=== PATIENT | male | born 1975 | race Caucasian/White ===

== ENCOUNTER 2024-02-09 18:46 | Observation (INO) | payer OTHER, SELFPAY ==
[2024-02-09 18:50] VITALS: BP 146/84; PULSE 70; RESP 16; TEMP 37.1; O2SAT 98; BMI 32.3
[2024-02-09] MEDS: PANTOPRAZOLE 40 MG VIAL 80 MG IV (19:26)
--- NOTE | 2024-02-09 19:29 | ED_ITS ---
HPI - GI Bleed General Chief complaint: GI Bleed Stated complaint: states bleeding ulcer/black stool Time Seen by Provider: 02/09/24 19:17 Source: patient Mode of arrival: Ambulatory History of Present Illness HPI Narrative: 48-year-old male admits to recent drinking of 4 margaritas at a alliance party, does not usually drink alcohol regularly or that much, Monday started having four loose black appearing stools, some crampy upper abdominal pain, Monday had black colored diarrhea twice at work in [place], still having intermittent black stools there, no bright red blood per rectum, more solid black stool today, taking daily Advil for chronic left knee pain since surgery December 2022. Here for further evaluation of ongoing black stools. He denies syncope or presyncope symptoms, no generalized weakness. He denies abdominal discomfort. No nausea or vomiting. No history of known varices or liver problems known. He has not take blood thinner medications. Related Data Home Medications Medication Instructions Recorded Confirmed No Known Home Medications 02/09/24 02/09/24 Allergies Allergy/AdvReac Type Severity Reaction Status Date / Time No Known Drug Allergies Allergy Verified 02/09/24 19:27 Patient History Social History household members: spouse Smoking Status: Never smoker alcohol intake: current Exam Narrative Exam Narrative: GENERAL: Well-developed patient, in mild distress. HEAD: Atraumatic. Normocephalic. EYES: Pupils equal round and reactive. Extraocular motions intact. No scleral icterus. No injection or drainage. ENT: Nose without bleeding, purulent drainage. Throat without erythema, tonsillar hypertrophy or exudate. Airway patent. NECK: Trachea midline. Non tender CARDIOVASCULAR: Regular rate and rhythm without murmurs, gallops, or rubs. RESPIRATORY: Clear to auscultation. Breath sounds equal bilaterally. No wheezes, rales, or rhonchi. GASTROINTESTINAL: Abdomen soft, non-tender, nondistended. Defecated stool guaiac positive EXTREMITIES: No edema or joint tenderness. BACK: Nontender without deformity or crepitance. No flank tenderness. NEURO: AOx3. SKIN: No rash or erythema of visible areas Initial Vital Signs Initial Vital Signs: Vital Signs Temperature 98.7 F 02/09/24 18:50 Pulse Rate 70 02/09/24 18:50 Respiratory Rate 16 02/09/24 18:50 Blood Pressure 146/84 H 02/09/24 18:50 Pulse Oximetry 98 02/09/24 18:50 Oxygen Delivery Method Room Air 02/09/24 18:50 Course Orders Ordered: Albuterol (Albuterol 2.5 Mg/3 Ml Neb (Adult)) 2.5 mg INH [id number] PRN PRN Reason: Dyspnea Hydralazine HCl (Hydralazine 20 Mg/Ml Vial) 10 mg IV Q6HR PRN PRN Reason: SBP>= 160 or DBP >=110 Hydromorphone HCl (Hydromorphone 0.5 Mg Inj) 0.5 mg IV Q2H PRN PRN Reason: Pain, Severe (7-10) Sodium Chloride (Normal Saline 0.9%) 1,000 mls @ 100 mls/hr IV CONT BEBA Last Admin: 02/09/24 21:25 Dose: 100 mls/hr Documented By: SUNNI Lorazepam (Lorazepam 2 Mg/Ml Inj) 0.25 mg IV Q4HR PRN PRN Reason: Anxiety Naloxone HCl (Naloxone 0.4 Mg/Ml Vial) 0.2 mg IV Q2MIN PRN PRN Reason: Opiate Reversal Ondansetron HCl (Ondansetron 4 Mg/2 Ml Inj) 4 mg IV Q8HR PRN PRN Reason: Nausea And Vomiting Pantoprazole Sodium (Pantoprazole 40 Mg Vial) 40 mg IV Q12H [facility] Discontinued Medications Pantoprazole Sodium (Pantoprazole 40 Mg Vial) 80 mg IV NOW ONE Stop: 02/09/24 19:19 Last Admin: 02/09/24 19:26 Dose: 80 mg Documented By: TEA Pantoprazole Sodium (Pantoprazole 40 Mg Vial) 40 mg IV BID [facility] Vital Signs Vital signs: Vital Signs - 8 hr 02/09/24 18:50 Temperature 98.7 F Pulse Rate 70 Respiratory Rate 16 Blood Pressure 146/84 H Pulse Oximetry 98 Oxygen Delivery Method Room Air MDM - GI Bleed Medical Records Attestation: I reviewed the patient's medical records. Lab Data Attestation: I reviewed the patient's lab results. 02/09/24 19:10 02/09/24 19:10 Labs: Lab Results 02/09/24 02/09/24 02/09/24 Range/Units 19:10 19:33 19:38 WBC 5.7 (4.5-11.0) X10^3/uL RBC 4.47 L (4.5-5.9) X10^6/uL Hgb 14.1 (13.5-17.5) g/dL Hct 40.0 L (41-53) % MCV 89.6 (80-100) fL MCH 31.5 (26-34) PG MCHC 35.2 (30-36) % RDW 14.2 (11.6-14.8) % Plt Count 334 (150-400) X10^3/uL Neut % (Auto) 54.1 (50-75) % Lymph % (Auto) 35.8 (25-40) % [place] % (Auto) 6.5 (3-14) % Eos % (Auto) 2.2 (2-4) % Baso % (Auto) 1.4 (0-2) % Neut # (Auto) 3100 (7843-5682) /uL Lymph # (Auto) 2000 (9381-6067) /uL [place] # (Auto) 400 (0-900) /uL Eos # (Auto) 100 (0-450) /uL Baso # (Auto) 100 (0-100) /uL PT 11.1 (9.4-12.5) SECONDS INR 1.0 (0.9-1.3) Sodium 140 (137-145) mmol/L Potassium 3.9 (3.4-5.1) mmol/L Chloride 107 (98-107) mmol/L Carbon Dioxide 26 (22-32) mmol/L BUN 17 (9-20) mg/dL Creatinine 0.84 (0.66-1.25) mg/dL Estimated GFR > 60 (>60) mL/min BUN/Creatinine Ratio 20.2 (6-22) Glucose 90 (70-100) mg/dL Calcium 8.8 (8.4-10.2) mg/dL Total Bilirubin 0.6 (0.2-1.3) mg/dL AST 35 (17-59) IU/L ALT 41 (<50) IU/L Alkaline Phosphatase 69 (38-126) U/L Ammonia < 9 L (9-30) umol/L Total Protein 7.2 (6.3-8.2) g/dL Albumin 4.5 (3.5-5.0) g/dL Globulin 2.7 (1.7-4.1) g/dL Albumin/Globulin Ratio 1.7 (1.0-2.8) Lipase 125 (23-300) U/L Blood Type O Positive Antibody Screen Negative Point of Care Testing Stool Occult Blood Positive ECG Data Attestation: I personally reviewed and interpreted this ECG as follows: Interpretation: Normal sinus rhythm with a rate of 68, no obvious ST segment elevation or depression changes. There are T-wave inversions in lead 3 and 5, not elevated lead 2. None for comparison available. MDM Narrative Medical decision making narrative: 48-year-old male with reported melanotic stools for the last 4 days somewhat tapering but persisting, recent alcohol use but not chronic, no blood thinner medications, has frequent regular exposure to ibuprofen for chronic knee pain. No previous upper endoscopies. Afebrile, sirs screen negative. Initial hemoglobin 14.1, platelets adequate, INR normal. Will consult with general surgery about upper endoscopy timing 1954, case discussed with general surgery Dr. Manzo, he can consult for upper endoscopy, requests admission to hospitalist 2009, call back from hospitalist Dr. Barrett, accepts patient for admission to observation Critical Care Time Critical Care Time Critical Care Time: Yes Total Critical Care Time: 35 Attestation: The high probability of a clinically significant, sudden or life threatening deterioration of the [GI, cardiovasular] system(s) required my full and direct attention, intervention and personal management. The aggregate critical care time was [35] minutes. This time is in addition to time spent performing reported procedures but includes the following: [x] Data Review and interpretation [x] Patient assessment and monitoring of vital signs [x] Documentation [x] Medication orders and management Discharge Plan Departure Patient Disposition: Admitted as Observation Clinical Impression: Upper gastrointestinal hemorrhage Admit Date/Time: 02/09/24 20:15 Admit Provider: Gavin Barrett
[2024-02-09 19:32] LABS: Add Manual Diff / Slide Review NO; Basophils Absolute Auto 100 /uL (0-100); Basophils Percent Auto 1.4 % (0-2); Eosinophils Absolute Auto 100 /uL (0-450); Eosinophils Percent Auto 2.2 % (2-4); Hemoglobin 14.1 g/dL (13.5-17.5); Lymphocytes Absolute Auto 2000 /uL (1100-4500); Lymphocytes Percent Auto 35.8 % (25-40); Mean Corpuscular HGB Conc 35.2 % (30-36); Mean Corpuscular Hemoglobin 31.5 PG (26-34); Mean Corpuscular Volume 89.6 fL (80-100); Monocytes Absolute Auto 400 /uL (0-900); Monocytes Percent Auto 6.5 % (3-14); Neutrophils Absolute Auto 3100 /uL (1500-7000); Neutrophils Percent Auto 54.1 % (50-75); Platelet Count 334 X10^3/uL (150-400); Red Blood Cell Count 4.47 X10^6/uL (4.5-5.9); Red Cell Distribution Width 14.2 % (11.6-14.8); White Blood Cell Count 5.7 X10^3/uL (4.5-11.0)
[2024-02-09 19:33] LABS: Alanine Aminotransferase 41 IU/L (<50); Albumin 4.5 g/dL (3.5-5.0); Albumin Globulin Ratio 1.7 (1.0-2.8); Alkaline Phosphatase 69 U/L (38-126); Aspartate Aminotransferase 35 IU/L (17-59); BUN Creatinine Ratio 20.2 (6-22); Bilirubin Total 0.6 mg/dL (0.2-1.3); Blood Urea Nitrogen 17 mg/dL (9-20); Calcium 8.8 mg/dL (8.4-10.2); Carbon Dioxide 26 mmol/L (22-32); Chloride 107 mmol/L (98-107); Estimated Glomerular Filt Rate > 60 mL/min (>60); Globulin 2.7 g/dL (1.7-4.1); Glucose 90 mg/dL (70-100); HEMOLYSIS 24 (0-50); Lipase 125 U/L (23-300); Potassium 3.9 mmol/L (3.4-5.1); Sodium 140 mmol/L (137-145); Total Protein 7.2 g/dL (6.3-8.2)
[2024-02-09 19:49] LABS: Prothrombin Time 11.1 SECONDS (9.4-12.5)
[2024-02-09 20:03] LABS: Ammonia (NH3) < 9 umol/L (9-30)
[2024-02-09] MEDS: SODIUM CHLORIDE 0.9% 1,000 ML 100 ML IV (21:25)
--- NOTE | 2024-02-09 21:46 | PC.NURSE ---
Report given to Estefania GLASGOW @#[id number]
[2024-02-09 22:22] VITALS: BMI 33.2
[2024-02-09 22:35] VITALS: BP 141/81; PULSE 56; RESP 20; TEMP 35.8; O2SAT 98
[2024-02-09 22:37] VITALS: BMI 33.2
--- NOTE | 2024-02-09 23:59 | PM.HP.1 ---
History of Present Illness History of Present Illness Chief complaint: states bleeding ulcer/black stool Narrative: 48 years old male with history of hyperlipidemia, GERD presented to the ER with multiple loose black stools and some abdominal cramps since Monday. The patient traveled to [place] on Monday and started developing intermittent diarrhea. She also reports some cold, sweating and lightheadedness. Denies any hematemesis, nausea or vomiting, syncope, chest pain, shortness of breath or palpitations. Denies heavy use of alcohol. He was taking Advil on a regular basis since he had left knee surgery in 2022. Denies excessive use of alcohol. The patient had colonoscopy last year with removal of small polyps and is scheduled to have next colonoscopy in 5 years. Laboratory was unremarkable. General surgery was consulted for upper endoscopy. He was given Protonix 80 mg IV in the ER. [facility] Social History household members: spouse Smoking Status: Never smoker alcohol intake: current Meds Home Medications and Allergies Home Medications Medication Instructions Recorded Confirmed Type No Known Home Medications 02/09/24 02/09/24 History Allergies Allergy/AdvReac Type Severity Reaction Status Date / Time No Known Drug Allergies Allergy Verified 02/09/24 19:27 Review of Systems Review of Systems ROS: Yes All systems reviewed with the patient and are negative except as otherwise documented Constitutional Constitutional: Reports as per HPI and Reports system reviewed and no additional complaints, except as documented Eyes Eyes: Reports as per HPI and Reports system reviewed and no additional complaints, except as documented ENT Ears, Nose, Mouth, and Throat: Yes as per HPI and Yes system reviewed and no additional complaints, except as documented Cardiovascular Cardiovascular: Reports system reviewed and no additional complaints, except as documented Respiratory Respiratory: Reports system reviewed and no additional complaints, except as documented Gastrointestinal Gastrointestinal: Reports system reviewed and no additional complaints, except as documented Genitourinary Genitourinary: Reports system reviewed and no additional complaints, except as documented Musculoskeletal Musculoskeletal: Reports system reviewed and no additional complaints, except as documented, Reports abnormal gait and Reports numbness Neurologic Neurologic: Reports system reviewed and no additional complaints, except as documented, Reports abnormal gait, Reports confusion and Reports numbness Psychiatric Psychiatric: Reports system reviewed and no additional complaints, except as documented and Reports confusion Exam Vital Signs (past 8 hours): - 02/09/24 18:50 02/09/24 22:35 Temperature 98.7 F 96.4 F L Pulse Rate 70 56 L Respiratory Rate 16 20 Blood Pressure 146/84 H 141/81 H Pulse Oximetry 98 98 Oxygen Delivery Method Room Air Oxygen Flow Rate 0 Oxygen Delivery Method Room Air Oxygen Flow Rate 0 Const General: cooperative, comfortable and well developed Orientation: alert and oriented x3 [facility] Head: normal to inspection, normocephalic and atraumatic Face and sinus: normal facial exam Mouth: oral mucosae normal and moist mucous membranes Throat: posterior oropharynx normal Eyes General: appearance normal, both eyes and all related structures Pupils: PERRL EOM: EOM intact bilaterally Neck Neck: normal visual inspection and full ROM Chest Chest: normal inspection of the chest Resp Effort & Inspection: normal respiratory effort and able to speak in complete sentences Auscultation: clear to auscultation bilaterally Cardio Palpation: normal PMI Rate: regular rate Rhythm: regular rhythm Heart Sounds: S1 normal and S2 normal GI Inspection: normal to inspection Palpation: soft and no hepatosplenomegaly Auscultation: normal bowel sounds Skin General: no rashes or lesions noted Lesions: no lesions Rashes: no rashes Trauma: no lacerations or abrasions Neuro General: patient alert, patient awake, patient oriented x3 and no focal motor deficits Cranial Nerves: CN's II-XI intact bilaterally Cognition: normal cognition Speech: speech normal Gait: normal gait Motor: muscle tone normal throughout Sensory Exam: no sensory deficits noted Extrem General: full ROM and no calf tenderness Psych Appearance: grossly normal Mental Status: mental status grossly normal Speech and Movement: speech and movement normal Objective Labs 02/09/24 19:10 02/09/24 19:10 Labs: Laboratory Results - last 24 hr 02/09/24 02/09/24 02/09/24 19:10 19:33 19:38 WBC 5.7 RBC 4.47 L Hgb 14.1 Hct 40.0 L MCV 89.6 MCH 31.5 MCHC 35.2 RDW 14.2 Plt Count 334 Neut % (Auto) 54.1 Lymph % (Auto) 35.8 [place] % (Auto) 6.5 Eos % (Auto) 2.2 Baso % (Auto) 1.4 Neut # (Auto) 3100 Lymph # (Auto) 2000 [place] # (Auto) 400 Eos # (Auto) 100 Baso # (Auto) 100 PT 11.1 INR 1.0 Sodium 140 Potassium 3.9 Chloride 107 Carbon Dioxide 26 BUN 17 Creatinine 0.84 Estimated GFR > 60 BUN/Creatinine Ratio 20.2 Glucose 90 Calcium 8.8 Total Bilirubin 0.6 AST 35 ALT 41 Alkaline Phosphatase 69 Ammonia < 9 L Total Protein 7.2 Albumin 4.5 Globulin 2.7 Albumin/Globulin Ratio 1.7 Lipase 125 Blood Type O Positive Antibody Screen Negative Assessment & Plan Assessment & Plan narrative: Acute GI bleeding. Most likely upper GI bleed due to excessive use of NSAIDs. Hemodynamically stable. H&H stable. -Monitor H and H every 4-6 hours; will transfuse depending on dropping hemoglobin and hematocrit and hemodynamic status. -start Protonix 40 mg IV twice a day. -Keep patient NPO -Monitor hemodynamics -IVF -Gastroenterology/surgery consulted for endoscopic evaluation of upper GI tract, -Patient to get off any antiplatelet agent like aspirin, Plavix or NSAIDs. Time Spent With Patient Time with patient: 50 to 69 minutes with 50% spent counseling/coordinating care Quality VTE Deep Vein Thrombosis/Pulmonary Embolism Present on Admission: No MIPS - Admit I confirm the patient?s Advance Care Plan is present, Code status is documented, Surrogate decision maker is in patient?s record [If Yes, STOP here]: Yes MIPS - Meds 'Current medications' to include all prescriptions, [id number] products, herbals, cannabis/cannabidiol products, and vitamin/mineral/dietary (nutritional) supplements. I have utilized all available resources to obtain, update, or review the patient?s current medications. [If Yes, STOP here]: Yes
[2024-02-10 03:05] VITALS: BP 123/78; PULSE 64; RESP 18; TEMP 36.7; O2SAT 96
[2024-02-10 08:00] VITALS: BP 124/82; PULSE 67; RESP 18; TEMP 36.1; O2SAT 97
[2024-02-10] MEDS: PANTOPRAZOLE 40 MG VIAL IV (08:22)
[2024-02-10] MEDS: SODIUM CHLORIDE 0.9% 1,000 ML 100 ML IV (08:22)
[2024-02-10 08:30] LABS: Alanine Aminotransferase 34 IU/L (<50); Albumin 3.9 g/dL (3.5-5.0); Albumin Globulin Ratio 1.6 (1.0-2.8); Alkaline Phosphatase 62 U/L (38-126); Aspartate Aminotransferase 28 IU/L (17-59); BUN Creatinine Ratio 15.7 (6-22); Bilirubin Total 0.7 mg/dL (0.2-1.3); Blood Urea Nitrogen 13 mg/dL (9-20); Calcium 8.4 mg/dL (8.4-10.2); Carbon Dioxide 26 mmol/L (22-32); Chloride 110 mmol/L (98-107); Estimated Glomerular Filt Rate > 60 mL/min (>60); Globulin 2.5 g/dL (1.7-4.1); Glucose 89 mg/dL (70-100); HEMOLYSIS < 15 (0-50); Magnesium 2.3 mg/dL (1.6-2.3); Potassium 3.8 mmol/L (3.4-5.1); Sodium 141 mmol/L (137-145); Total Protein 6.4 g/dL (6.3-8.2)
[2024-02-10 08:57] LABS: Add Manual Diff / Slide Review NO; Basophils Absolute Auto 300 /uL (0-100); Basophils Percent Auto 5.2 % (0-2); Eosinophils Absolute Auto 200 /uL (0-450); Eosinophils Percent Auto 2.7 % (2-4); Hematocrit 40.4 % (41-53); Hemoglobin 14.2 g/dL (13.5-17.5); Lymphocytes Absolute Auto 1300 /uL (1100-4500); Lymphocytes Percent Auto 22.3 % (25-40); Mean Corpuscular HGB Conc 35.3 % (30-36); Mean Corpuscular Hemoglobin 31.7 PG (26-34); Monocytes Absolute Auto 400 /uL (0-900); Neutrophils Absolute Auto 3500 /uL (1500-7000); Neutrophils Percent Auto 62.8 % (50-75); Platelet Count 324 X10^3/uL (150-400); Red Blood Cell Count 4.49 X10^6/uL (4.5-5.9); Red Cell Distribution Width 13.8 % (11.6-14.8); White Blood Cell Count 5.6 X10^3/uL (4.5-11.0)
--- NOTE | 2024-02-10 11:23 | P.DS_ITS ---
History of Present Illness History of Present Illness Date Patient Seen: 02/10/24 Time Patient Seen: 10:50 Chief complaint: states bleeding ulcer/black stool Narrative: Per admitting provider, 48 years old male with history of hyperlipidemia, GERD presented to the ER with multiple loose black stools and some abdominal cramps since Monday. The patient traveled to [place] on Monday and started developing intermittent diarrhea. She also reports some cold, sweating and lightheadedness. Denies any hematemesis, nausea or vomiting, syncope, chest pain, shortness of breath or palpitations. Denies heavy use of alcohol. He was taking Advil on a regular basis since he had left knee surgery in 2022. Denies excessive use of alcohol. The patient had colonoscopy last year with removal of small polyps and is scheduled to have next colonoscopy in 5 years. Laboratory was unremarkable. General surgery was consulted for upper endoscopy. He was given Protonix 80 mg IV in the ER. Discharge Providers Provider Date of admission: 02/09/24 20:15 Discharge Date: 02/10/24 Primary care physician: Doctor Myke MD Discharge provider: Beck Seay DO Summary Hospital Course Discharge Diagnosis: Acute upper GI bleeding. Hospital Course: This is a 48 year old male who presented with melena. Hg was 14 in the emergency room. He was hemodynamically stable. He was admitted for GI bleeding. H/h remained stable on repeat. Outpatient endoscopy was recommended by general surgery. Given recent NSAID use for knee pain this is the presumed source of his bleeding. H pylori testing was ordered after discharge for our outpatient lab. He was discharged on pantoprazole 40 mg BID and order was entered for general surgery referral for continued outpatient evaluation after discharge. Time Spent with Patient Time spent: Less than 30 minutes Exam Vital Signs (past 8 hours): - 02/10/24 08:00 Temperature 97 F L Pulse Rate 67 Respiratory Rate 18 Blood Pressure 124/82 Pulse Oximetry 97 Oxygen Flow Rate 0 Oxygen Delivery Method Room Air Oxygen Flow Rate 0 Narrative Exam Narrative: Gen: No acute distress Ext: no edema Objective Labs 02/10/24 08:40 02/10/24 08:06 Labs: Laboratory Results - last 24 hr 02/09/24 02/09/24 02/09/24 19:10 19:33 19:38 WBC 5.7 RBC 4.47 L Hgb 14.1 Hct 40.0 L MCV 89.6 MCH 31.5 MCHC 35.2 RDW 14.2 Plt Count 334 Neut % (Auto) 54.1 Lymph % (Auto) 35.8 [place] % (Auto) 6.5 Eos % (Auto) 2.2 Baso % (Auto) 1.4 Neut # (Auto) 3100 Lymph # (Auto) 2000 [place] # (Auto) 400 Eos # (Auto) 100 Baso # (Auto) 100 PT 11.1 INR 1.0 Sodium 140 Potassium 3.9 Chloride 107 Carbon Dioxide 26 BUN 17 Creatinine 0.84 Estimated GFR > 60 BUN/Creatinine Ratio 20.2 Glucose 90 Calcium 8.8 Magnesium Total Bilirubin 0.6 AST 35 ALT 41 Alkaline Phosphatase 69 Ammonia < 9 L Total Protein 7.2 Albumin 4.5 Globulin 2.7 Albumin/Globulin Ratio 1.7 Lipase 125 Blood Type O Positive Antibody Screen Negative 02/10/24 02/10/24 08:06 08:40 WBC 5.6 RBC 4.49 L Hgb 14.2 Hct 40.4 L MCV 90.0 MCH 31.7 MCHC 35.3 RDW 13.8 Plt Count 324 Neut % (Auto) 62.8 Lymph % (Auto) 22.3 L [place] % (Auto) 7.0 Eos % (Auto) 2.7 Baso % (Auto) 5.2 H Neut # (Auto) 3500 Lymph # (Auto) 1300 [place] # (Auto) 400 Eos # (Auto) 200 Baso # (Auto) 300 H PT INR Sodium 141 Potassium 3.8 Chloride 110 H Carbon Dioxide 26 BUN 13 Creatinine 0.83 Estimated GFR > 60 BUN/Creatinine Ratio 15.7 Glucose 89 Calcium 8.4 Magnesium 2.3 Total Bilirubin 0.7 AST 28 ALT 34 Alkaline Phosphatase 62 Ammonia Total Protein 6.4 Albumin 3.9 Globulin 2.5 Albumin/Globulin Ratio 1.6 Lipase Blood Type Antibody Screen [facility] Social History household members: spouse Smoking Status: Never smoker alcohol intake: current Discharge Plan Discharge Plan Patient Disposition: Home Provider Discharge Comment: Admitted for GI bleed, stable hg on repeat labs. Continue pantoprazole twice a day for 1 month, then reduce to once a day after. This should give you time to follow up with the general surgeons for endoscopy. Recommend changing from advil to tylenol for pain for a couple of months until after endoscopy. Discharge orders & Medications Prescriptions: New pantoprazole 40 mg tablet,delayed release (DR/EC) 40 mg PO BID 30 Days Qty: 60 0RF Follow up/Referrals: Les Manzo MD [Physician] - 1 Week Doctor Stringer MD [Primary Care Provider] - Other Ambulatory Orders: Referral General Surgery (Schedule) Timeframe: 1 Week Facility: [facility] - Location: [facility] Ordered By: Beck Seay H. Pylori Antigen Stool (Routine) Timeframe: 2 Days Facility: [facility] - Location: Laboratory Ordered By: Beck Seay Diet/Activity/Treatments Diet: Diet as Tolerated and Regular Activity: As tolerated no restrictions Visit Report/Discharge Packet Stand Alone Forms: Patient Portal/API, Stroke Signs & Symptoms Discharge Data Primary Care Provider: Doctor Myke Attending Provider: Gavin Barrett Admit Date/Time: 02/09/24 20:15 Quality VTE Deep Vein Thrombosis/Pulmonary Embolism Present on Admission: No
--- NOTE | 2024-02-10 12:27 | CM.DANOTE ---
Initial DCP Assessment Visit Note Reviewed EMR and team rounds for pt's medical status and anticipated d/c needs. Met with pt at bedside to introduce self and role, pt was found to be alert/oriented, expressing readiness to d/c back home today. Pt lives independently with his spouse [facility]. This SENIOR CREDIT OFFICER provided him with a priority boarding ferry pass for his return home. No DCP needs were identified for assistance during his hospital stay. Payor: Home PEREA PCP-not identified Pt is a 48 year-old M who presented to the ED last evening with c/o several days of black stools. Dr. Manzo was consulted, and the plan was made to place pt in OBS, made NPO, with endoscopy planned for today. This morning Surgery decided not to pursue the endoscopy, and pt was cleared for d/c with the plan for him to obtain an OP Lead Mobile Developer for further evaluation/tx. Discharge Planning/Care Management CM Discharge Assessment Start: 02/10/24 11:23 Freq: Status: Active Protocol: Document 02/10/24 11:23 DPL (Rec: 02/10/24 11:24 DPL [id number]) Discharge Planning Assessment Assigned Purchase Request Editor JAI Michelle Advance Directives? No History Provided By Patient,Medical Record Has Patient been admitted in last 30 No days? Prior Living Arrangements House Household Members spouse Type of transporation used prior to Drives own vehicle admit Independent with ADL's Yes Is patient alert and oriented? Yes Comment N/A Caregiver for Another No Comment No identified home d/c needs at this time. Barriers to Discharge No Discharge Plan Home Transportation Arrangement Spouse Referrals Initiated None needed Whiteboard Updated in Patient Room with Yes name and ext. # of Purchase Request Editor Review Status In Process Please Provide Date Initial DC 02/10/24 Assessment Was Performed
--- NOTE | 2024-02-10 13:07 | PC.NURSE ---
Pt discharged home at 1230, escorted off floor accompanied by hospital staff. IV removed, discharge teaching provided including new medications, follow up appointment and worsening symptoms. Questions answered and concerns addressed. Patient left the floor with all belongings.
== END 2024-02-10 12:30 | disposition home or self-care (01) ==
LOC: ED 19:17 → AC 20:16
PROVIDERS: Internal Medicine; Admitting Provider Internal Medicine; Emergency Provider Emergency Medicine; Referring Provider Emergency Medicine; Visit Provider Internal Medicine
DX: K92.1 Melena (principal); K21.9 Gastro-esophageal reflux disease without esophagitis
CPT/HCPCS: 36415; 80053; 82140; 82272; 83690; 83735; 85025; 85610; 86850; 86900; 86901; 93005; 96361; 96374; 96376; 99284; G0378; C9113

== ENCOUNTER → 2025-02-23 15:34 | Outpatient (CLI) | payer OTHER, SELFPAY ==
--- NOTE | 2025-02-23 15:37 | DI.MRI.S_ITS ---
PROCEDURE: MR BRAIN (IAC) WWO CON INDICATIONS: tinnitus, rt ear TECHNIQUE: Noncontrast sagittal T1 spin echo, axial FLAIR, axial gradient echo, axial diffusion and ADC through the brain. Axial thin-slice 3D CISS, coronal TruFISP, axial T1 spin echo with fat saturation through the internal auditory canals. After the administration of contrast, thin slice axial and coronal T1 spin echo with fat saturation through the internal auditory canals, and axial and coronal and sagittal T1 spin echo with fat saturation through the brain. COMPARISON: None. FINDINGS: Image quality: Excellent. Cerebellopontine angles: No cerebellopontine angle masses. Inner ear structures appear normally formed. No suspicious enhancement in the internal auditory canal or along the course of the 7th cranial nerve. CSF spaces: Ventricles are normal in size and shape. No extra-axial fluid collections. Basal cisterns are patent. Brain: No intracranial bleeds or mass effects. Mccabe-white matter interface is intact. No abnormal intracranial enhancement. Few tiny punctate foci of T2/FLAIR hyperintense signal within the supratentorial white matter is nonspecific and likely within normal limits for age. Diffusion weighted images demonstrate no acute ischemic insults. Brainstem appears normal. Normal intravascular flow voids are present. Skull and face: Calvarial marrow signal is normal. Orbits appear normal. Sinuses: Small right maxillary sinus mucous retention cysts. Sinuses and mastoids are otherwise clear. IMPRESSION: Normal appearance of the internal auditory canals and cerebellopontine angles. No cause for patient's symptoms is identified. No acute intracranial abnormalities or abnormal intracranial enhancement. Dictated by: Singh Piedra M.D. on 02/24/2025 at 11:30 Approved by: Singh Piedra M.D. on 02/24/2025 at 11:35
--- NOTE | 2025-02-23 15:44 | DI.RAD.S_ITS ---
PROCEDURE: XR KNEE LT 3V INDICATIONS: xray TECHNIQUE: 3 views of the knee were acquired. COMPARISON: None. FINDINGS: Bones: Postsurgical changes from prior ACL repair. Anatomic left knee alignment. No fractures or dislocations. Mild tricompartmental osteoarthritis is seen. No significant patellar subluxation. No suspicious bony lesions. Soft tissues: No joint effusion. No suspicious soft tissue calcifications. IMPRESSION: Prior ACL repair with anatomic left knee alignment. No acute fracture or dislocation. Mild tricompartmental osteoarthritis. No significant joint effusion. Dictated by: Ruel Adkins M.D. on 02/23/2025 at 19:18 Approved by: Ruel Adkins M.D. on 02/23/2025 at 19:18
== END ==
PROVIDERS: Referring Provider Family Medicine; Visit Provider Family Medicine
DX: H93.11 Tinnitus, right ear (principal); M23.52 Chronic instability of knee, left knee; M17.12 Unilateral primary osteoarthritis, left knee; J34.1 Cyst and mucocele of nose and nasal sinus
CPT/HCPCS: 70553; 73562; A9579